=== PATIENT | male | born 1950 | race Hispanic/Latino ===

== ENCOUNTER 2020-04-21 10:42 | Outpatient (RCR) | payer MEDICARE ==
[~2020-04-21 10:42] MED LIST: ASPIR-LOW81 MG PO; CLINDAMYCIN HC150 MG PO; METFORMIN HCL500 MG PO
== END 2020-04-29 ==
LOC: WCC 10:42
PROVIDERS: ATTEND Internal Medicine Infectious Disease
DX: T84.498A Other mechanical complication of other internal orthopedic devices, implants and grafts, initial encounter (principal); K65.1 Peritoneal abscess; S31.30XA Unspecified open wound of scrotum and testes, initial encounter; V46.5XXA Car driver injured in collision with other nonmotor vehicle in traffic accident, initial encounter
CPT/HCPCS: 36415; 82948; 87071; 87075; 87205

== ENCOUNTER 2020-05-22 15:32 | Outpatient (RCR) | payer MEDICARE | END 2020-05-29 | LOC: WCC 15:32 | PROVIDERS: ATTEND Internal Medicine Infectious Disease | DX: T84.498A Other mechanical complication of other internal orthopedic devices, implants and grafts, initial encounter (principal); K65.1 Peritoneal abscess; S31.30XA Unspecified open wound of scrotum and testes, initial encounter; V46.5XXA Car driver injured in collision with other nonmotor vehicle in traffic accident, initial encounter ==

== ENCOUNTER 2020-06-19 13:07 | Outpatient (RCR) | payer MEDICARE ==
[~2020-06-19 13:07] MED LIST changes: +MUPIROCIN 2% OINT 22 GM TUBE ONE
[2020-06-19] MEDS ORDERED: MUPIROCIN 2% OINT 22 GM TUBE ONE (13:35)
[2020-06-19] MEDS ORDERED: LIDOCAINE VISC 2% SOLN 15 ML UDC ONE (13:35)
== END 2020-06-29 ==
LOC: WCC 13:07
PROVIDERS: ATTEND Internal Medicine Infectious Disease
DX: T84.498A Other mechanical complication of other internal orthopedic devices, implants and grafts, initial encounter (principal); K65.1 Peritoneal abscess; S31.30XA Unspecified open wound of scrotum and testes, initial encounter; V46.5XXA Car driver injured in collision with other nonmotor vehicle in traffic accident, initial encounter
CPT/HCPCS: 87071; 87075; 87205

== ENCOUNTER 2020-07-17 14:31 | Outpatient (RCR) | payer MEDICARE ==
[2020-07-17] MEDS ORDERED: LIDOCAINE VISC 2% SOLN 15 ML UDC ONE (16:15)
== END 2020-07-30 ==
LOC: WCC 14:31
PROVIDERS: ATTEND Internal Medicine Infectious Disease
DX: T84.498A Other mechanical complication of other internal orthopedic devices, implants and grafts, initial encounter (principal); K65.1 Peritoneal abscess; S31.30XA Unspecified open wound of scrotum and testes, initial encounter; V46.5XXA Car driver injured in collision with other nonmotor vehicle in traffic accident, initial encounter